=== PATIENT | male | born 1935 | race Caucasian/White ===

== ENCOUNTER 2018-06-23 13:12 | Emergency (ER) | payer MEDICARE, OTHER ==
[~2018-06-23] VITALS: Ht 172.7 cm; Wt 84.8 kg
--- NOTE | 2018-06-23 13:24 | ED Abdominal Pain ---
General Stated Complaint: RT SIDE PAIN Source of Information: Patient Exam Limitations: No Limitations History of Present Illness Date Seen by Provider: Jun 23, 2018 Time Seen by Provider: 13:22 Initial Comments To ER with sudden onset right lower quadrant abdominal pain about 3 hours ago. Hes had associated chills nausea and vomiting. No dysuria or bowel changes. This was sudden in onset just a few hours ago, felt fine earlier this morning. No history of this. No history of abdominal surgeries. He is actually from [place] drove to [place] last night and drove down here to [place] from [place] this morning. He is otherwise healthy only reporting a history of asthma and hypertension. Timing/Duration: 1-3 Hours Severity/Quality: Severe Location: RLQ Radiation: No Radiation Activities at Onset: None Allergies and Home Medications Allergies Coded Allergies: No Known Drug Allergies (Unverified , 06/23/18) Home Medications Hydrocodone/Acetaminophen 1 Each Tablet, 1 EACH PO Q4H PRN for PAIN-MODERATE TO SEVERE Prescribed by: KAIT ELLIS on 06/23/18 141 Ketorolac Tromethamine 10 Mg Tablet, 10 MG PO Q6H Prescribed by: KAIT ELLIS on 06/23/18 141 Sulfamethoxazole/Trimethoprim 1 Each Tablet, 1 EACH PO BID Prescribed by: KAIT ELLIS on 06/23/18 1417 Patient Home Medication List Home Medication List Reviewed: Yes Review of Systems Review of Systems Constitutional: see HPI EENTM: No Symptoms Reported Respiratory: No Symptoms Reported Cardiovascular: No Symptoms Reported Gastrointestinal: See HPI, Abdominal Pain; Denies Constipated, Denies Diarrhea ; Nausea, Vomiting Genitourinary: See HPI; Denies Flank Pain, Denies Hematuria Musculoskeletal: no symptoms reported Skin: no symptoms reported Psychiatric/Neurological: No Symptoms Reported Endocrine: No Symptoms Reported Hematologic/Lymphatic: No Symptoms Reported Past Wewnmuk-Dxckzm-Cxbqjr Hx Patient Social History Recent Foreign Travel: No Contact w/Someone Who Travel: No Physical Exam Vital Signs Vital Signs - First Documented 06/23/18 13:32 Temp 97.4 Pulse 64 Resp 16 B/P (MAP) 165/82 (109) Pulse Ox 98 Capillary Refill : Height/Weight/BMI Height: '" Weight: lbs. oz. kg; BMI Method: General Appearance: WD/WN, no apparent distress HEENT: PERRL/EOMI, normal ENT inspection Neck: non-tender, full range of motion Respiratory: normal breath sounds, no respiratory distress, no accessory muscle use Cardiovascular: regular rate, rhythm, no murmur Gastrointestinal: normal bowel sounds, soft, tenderness (right lower quadrant) Extremities: normal range of motion, non-tender Neurologic/Psychiatric: alert, normal mood/affect, oriented x 3 Skin: normal color, warm/dry Progress/Results/Core Measures Results/Orders Lab Results Laboratory Tests Test 06/23/18 13:26 Range/Units White Blood Count 15.1 H 4.3-11.0 10^3/uL Red Blood Count 4.06 L 4.35-5.85 10^6/uL Hemoglobin 13.3 13.3-17.7 G/DL Hematocrit 39 L 40-54 % Mean Corpuscular Volume 95 80-99 FL Mean Corpuscular Hemoglobin 33 25-34 PG Mean Corpuscular Hemoglobin Concent 34 32-36 G/DL Red Cell Distribution Width 13.3 10.0-14.5 % Platelet Count 257 130-400 10^3/uL Mean Platelet Volume 10.8 H 7.4-10.4 FL Neutrophils (%) (Auto) 87 H 42-75 % Lymphocytes (%) (Auto) 9 L 12-44 % Monocytes (%) (Auto) 3 0-12 % Eosinophils (%) (Auto) 1 0-10 % Basophils (%) (Auto) 0 0-10 % Neutrophils # (Auto) 13.1 H 1.8-7.8 X 10^3 Lymphocytes # (Auto) 1.4 1.0-4.0 X 10^3 Monocytes # (Auto) 0.5 0.0-1.0 X 10^3 Eosinophils # (Auto) 0.1 0.0-0.3 10^3/uL Basophils # (Auto) 0.0 0.0-0.1 10^3/uL Neutrophils % (Manual) 85 % Lymphocytes % (Manual) 7 % Monocytes % (Manual) 4 % Band Neutrophils 4 % Toxic Granulation 3+ Blood Morphology Comment NORMAL Urine Color YELLOW Urine Clarity VERY CLOUDY H Urine pH 5 5-9 Urine Specific [place] 1.025 H 1.016-1.022 Urine Protein 2+ H NEGATIVE Urine Glucose (UA) NEGATIVE NEGATIVE Urine Ketones NEGATIVE NEGATIVE Urine Nitrite NEGATIVE NEGATIVE Urine Bilirubin NEGATIVE NEGATIVE Urine Urobilinogen NORMAL NORMAL MG/DL Urine Leukocyte Esterase 3+ H NEGATIVE Urine RBC (Auto) 5+ H NEGATIVE Urine RBC 10-25 H /HPF Urine WBC TNTC H /HPF Urine Squamous Epithelial Cells NONE /HPF Urine Crystals NONE /LPF Urine Bacteria LARGE H /HPF Urine Casts NONE /LPF Urine Mucus SMALL H /LPF Urine Culture Indicated YES Sodium Level 143 135-145 MMOL/L Potassium Level 3.8 3.6-5.0 MMOL/L Chloride Level 110 H 98-107 MMOL/L Carbon Dioxide Level 19 L 21-32 MMOL/L Anion Gap 14 5-14 MMOL/L Blood Urea Nitrogen 18 7-18 MG/DL Creatinine 1.19 0.60-1.30 MG/DL Estimat Glomerular Filtration Rate 59 BUN/Creatinine Ratio 15 Glucose Level 151 H 70-105 MG/DL Calcium Level 9.5 8.5-10.1 MG/DL Corrected Calcium 9.3 8.5-10.1 MG/DL Total Bilirubin 0.5 0.1-1.0 MG/DL Aspartate Amino Transf (AST/SGOT) 18 5-34 U/L Alanine Aminotransferase (ALT/SGPT) 20 0-55 U/L Alkaline Phosphatase 58 40-136 U/L Total Protein 7.7 6.4-8.2 GM/DL Albumin 4.2 3.2-4.5 GM/DL My Orders Orders - KAIT ELLIS APRN Cbc With Automated Diff (06/23/18 13:16) Comprehensive Metabolic Panel (06/23/18 13:16) Ua Culture If Indicated (06/23/18 13:16) Iv Heplock-Insert (Order) (06/23/18 13:16) Ct Abd/Pelvis Wo(Kidney Stone) (06/23/18 13:21) Ketorolac Injection (Toradol Injection) (06/23/18 13:30) Ondansetron Injection (Zofran Injectio (06/23/18 13:30) Manual Differential (06/23/18 13:26) Urine Culture (06/23/18 13:26) Ceftriaxone For Iv Use (Rocephin For I (06/23/18 14:00) Abdomen/Kub 1view (06/23/18 14:00) Medications Given in ED Current Medications Medications Dose Ordered Sig/Facundo Route Start Time Stop Time Status Last Admin Dose Admin Ceftriaxone Sodium 1000 mg/ Sodium Chloride 50 ml @ 100 mls/hr ONCE ONCE IV 06/23/18 14:00 06/23/18 14:29 DC 06/23/18 14:08 100 MLS/HR Ketorolac Tromethamine 30 mg ONCE ONCE IVP 06/23/18 13:30 06/23/18 13:31 DC 06/23/18 13:31 30 MG Ondansetron HCl 4 mg ONCE ONCE IVP 06/23/18 13:30 06/23/18 13:31 DC 06/23/18 13:32 4 MG Vital Signs/I&O 06/23/18 13:32 Temp 97.4 Pulse 64 Resp 16 B/P (MAP) 165/82 (109) Pulse Ox 98 Diagnostic Imaging Diagonstic Imaging: CT Comments NAME: JAHAIRA SANDHU [facility] REC#: [id number] PT STATUS: REG ER : 1935 PHYSICIAN: KAIT ELLIS APRN ADMIT DATE: 06/23/18/ER Draft Date of Exam:06/23/18 CT ABD/PELVIS WO(KIDNEY STONE) PROCEDURE: CT urinary tract, rule out kidney stone. TECHNIQUE: Multiple contiguous axial images were obtained through the abdomen and pelvis without the use of intravenous contrast. INDICATION: Anterior lower abdominal pain. Comparison: None Findings: The lung bases demonstrate minimal atelectasis. The heart is normal in size. There is no pericardial effusion. There is a small hiatal hernia. No focal hepatic lesions are seen. There are multiple calcified stones in the gallbladder, measuring up to 1.6 cm in diameter. The pancreas is unremarkable. The spleen appears normal. The adrenal glands are normal. There is moderate right hydroureteronephrosis, with a obstructing 3 mm calculus at the distal right ureter, approximately 1.5 cm from the ureterovesicular junction. No additional renal calculi are seen. No left hydronephrosis is seen. The urinary bladder is decompressed. The prostate is mildly large. The small bowel loops are nondistended without evidence of obstruction. The appendix appears normal. There is diverticulosis of the sigmoid colon without diverticulitis seen. There is a large left inguinal hernia which contains a loop of the sigmoid colon. No evidence of obstruction is seen. No free fluid or free air is seen in the abdomen. No acute osseous abnormality is seen. There is a simple appearing lipoma measuring 7.8 x 3.9 cm along the posterolateral right chest wall. IMPRESSION: 1. Obstructing 3 mm calculus in the distal right ureter, with moderate right hydroureteronephrosis. 2. Cholelithiasis. 3. Small hiatal hernia. 4. Large left inguinal hernia containing a loop of sigmoid colon. No obstruction is seen. 5. Colonic diverticulosis without diverticulitis. 6. Simple appearing lipoma along the posterolateral right chest wall. Dictated on workstation # [id number] Dict: 06/23/18 1343 Trans: 06/23/18 1351 [facility] [id number] Interpreted by: DAYSI VILLARREAL MD Electronically signed by: NAME: JAHAIRA SANDHU [facility] REC#: [id number] PT STATUS: REG ER : 1935 PHYSICIAN: KAIT ELLIS [employer] ADMIT DATE: 06/23/18/ER Draft Date of Exam:06/23/18 ABDOMEN/KUB 1VIEW INDICATION: Right flank pain Supine views of the abdomen shows bowel gas pattern to be within normal limits. There is cholelithiasis. No renal or ureteral stones are evident. There is no mass. There is no acute bony abnormality. IMPRESSION: Cholelithiasis. No acute abnormality is seen. Dictated on workstation # [id number] Dict: 06/23/18 1427 Trans: 06/23/18 1429 [facility] [id number] Interpreted by: ENRRIQUE STEWART MD Electronically signed by: Departure Communication (Admissions) [id number]- I discussed the case with Dr. Mosqueda from urology. Patient's pain is well controlled, he was 9 out of 10 on arrival and is currently 3 out of 10. He has no nausea no fevers. We will give a gram of Rocephin IV, Dr. Mosqueda would recommend Bactrim DS, pain medication and he can see the patient on Monday morning at 1 PM if the patient is still here. However, I discussed with the patient and he will be returning to [facility] tomorrow or he is from, he is only here to watch his grandchild November in the band at [facility]. I discussed at length with the patient and his the diagnosis of the stone, urinary tract infection which could precipitate a need for admission for IV antibiotics. They agreed to either return here or go to whichever hospital they may be nearest to if he develops fevers or vomiting or intolerable pain. Also discussed with him the incidental finding of left inguinal hernia and gallstones. He is well-appearing, no vomiting and pain is much better controlled. He appears a reliable source and can safely be discharged home with return precautions. Impression Primary Impression: Urinary tract infection Additional Impression: Right ureteral calculus Disposition: HOME, SELF-CARE Condition: Improved Departure-Patient Inst. Decision time for Depature: 14:11 Referrals: NO,LOCAL PHYSICIAN (PCP) Primary Care Physician DERRICK MOSQUEDA MD Patient Instructions: Kidney Stones in Adults, Urinary Tract Infection, Adult ( DC) Add. Discharge Instructions: 1. Return to ER (either here or at whichever hospital you may be near to on your trip home) for intolerable pain, FEVERS, nausea/vomiting. Follow up with your family doctor on Monday. 2. Your antibiotics and one of your pain medications has been transmitted electronically to [facility] across the street. The hydrocodone (stronger pain medication) will need to be hand delivered by you to the pharmacy at the drive- through. Scripts Sulfamethoxazole/Trimethoprim (Bactrim Ds Tablet) 1 Each Tablet 1 EACH PO BID, #20 TAB Prov: KAIT ELLIS APRN 06/23/18 Hydrocodone/Acetaminophen (Froid 5-325 Tablet) 1 Each Tablet 1 EACH PO Q4H PRN for PAIN-MODERATE TO SEVERE, #20 TAB Prov: KAIT ELLIS APRN 06/23/18 Ketorolac Tromethamine (Ketorolac Tromethamine) 10 Mg Tablet 10 MG PO Q6H, #14 TAB Prov: KAIT ELLIS APRN 06/23/18 KAIT ELLIS APRN Jun 23, 2018 13:24
[2018-06-23] MEDS ORDERED: ONDANSETRON 4 MG/2 ML (SDV) Z0FRAN IVP ONE (13:30)
[2018-06-23] MEDS ORDERED: KETOROLAC 30 MG/ML VIAL IVP ONE (13:30)
[2018-06-23] MEDS ORDERED: FLUT16SP22 (13:39)
[2018-06-23] MEDS ORDERED: MONT10TA24 (13:39)
[2018-06-23] MEDS ORDERED: TERA10CA3 (13:39)
[2018-06-23] MEDS ORDERED: LISI2.5T (13:39)
[2018-06-23 13:43] LABS: BILIRUBIN,URINE NEGATIVE (NEGATIVE); CLARITY,URINE VERY CLOUDY; COLOR,URINE YELLOW; GLUCOSE, URINE (UA) NEGATIVE (NEGATIVE); KETONES,URINE NEGATIVE (NEGATIVE); LEUKOCYTE ESTERASE ,URINE 3+ (NEGATIVE); NITRITE,URINE NEGATIVE (NEGATIVE); PH,URINE 5 (5-9); PROTEIN,URINE 2+ (NEGATIVE); UROBILINOGEN,URINE NORMAL (NORMAL)
[2018-06-23 13:44] LABS: BASOPHILS % (AUTO) 0 % (0-10); EOSINOPHILS # (AUTO) 0.1 10^3/uL (0.0-0.3); EOSINOPHILS % (AUTO) 1 % (0-10); HEMATOCRIT 39 % (40-54); HEMOGLOBIN 13.3 G/DL (13.3-17.7); LYMPHOCYTES # (AUTO) 1.4 X 10^3 (1.0-4.0); LYMPHOCYTES % (AUTO) 9 % (12-44); MEAN CORPUSCULAR HEMOGLOBIN 33 PG (25-34); MEAN CORPUSCULAR HGB CONC 34 G/DL (32-36); MEAN CORPUSCULAR VOLUME 95 FL (80-99); MEAN PLATELET VOLUME 10.8 FL (7.4-10.4); MONOCYTES # (AUTO) 0.5 X 10^3 (0.0-1.0); MONOCYTES % (AUTO) 3 % (0-12); NEUTROPHILS # (AUTO) 13.1 X 10^3 (1.8-7.8); NEUTROPHILS % (AUTO) 87 % (42-75); PLATELET COUNT 257 10^3/uL (130-400); RED BLOOD COUNT 4.06 10^6/uL (4.35-5.85); RED CELL DISTRIBUTION WIDTH 13.3 % (10.0-14.5); WHITE BLOOD COUNT 15.1 10^3/uL (4.3-11.0)
--- NOTE | 2018-06-23 13:51 | Diagnostic Imaging Report ---
PROCEDURE: CT urinary tract, rule out kidney stone. TECHNIQUE: Multiple contiguous axial images were obtained through the abdomen and pelvis without the use of intravenous contrast. INDICATION: Anterior lower abdominal pain. Comparison: None Findings: The lung bases demonstrate minimal atelectasis. The heart is normal in size. There is no pericardial effusion. There is a small hiatal hernia. No focal hepatic lesions are seen. There are multiple calcified stones in the gallbladder, measuring up to 1.6 cm in diameter. The pancreas is unremarkable. The spleen appears normal. The adrenal glands are normal. There is moderate right hydroureteronephrosis, with a obstructing 3 mm calculus at the distal right ureter, approximately 1.5 cm from the ureterovesicular junction. No additional renal calculi are seen. No left hydronephrosis is seen. The urinary bladder is decompressed. The prostate is mildly large. The small bowel loops are nondistended without evidence of obstruction. The appendix appears normal. There is diverticulosis of the sigmoid colon without diverticulitis seen. There is a large left inguinal hernia which contains a loop of the sigmoid colon. No evidence of obstruction is seen. No free fluid or free air is seen in the abdomen. No acute osseous abnormality is seen. There is a simple appearing lipoma measuring 7.8 x 3.9 cm along the posterolateral right chest wall. IMPRESSION: 1. Obstructing 3 mm calculus in the distal right ureter, with moderate right hydroureteronephrosis. 2. Cholelithiasis. 3. Small hiatal hernia. 4. Large left inguinal hernia containing a loop of sigmoid colon. No obstruction is seen. 5. Colonic diverticulosis without diverticulitis. 6. Simple appearing lipoma along the posterolateral right chest wall. Dictated by: Dictated on workstation # [id number]
[2018-06-23 13:52] LABS: BACTERIA,URINE LARGE /HPF; WBC,URINE TNTC /HPF
[2018-06-23] MEDS ORDERED: cefTRIAXone FOR IV USE 1,000 MG in NS (IVPB) 50 ML IV ONE (14:00)
[2018-06-23 14:01] LABS: ALBUMIN 4.2 GM/DL (3.2-4.5); BILIRUBIN,TOTAL 0.5 MG/DL (0.1-1.0); CALCIUM 9.5 MG/DL (8.5-10.1); CREATININE SERUM 1.19 MG/DL (0.60-1.30); POTASSIUM 3.8 MMOL/L (3.6-5.0); TOTAL PROTEIN 7.7 GM/DL (6.4-8.2)
[2018-06-23 14:02] LABS: BAND NEUTROPHILS 4 %; LYMPHOCYTES % (MANUAL) 7 %; MONOCYTES % (MANUAL) 4 %; NEUTROPHILS % (MANUAL) 85 %; RBC MORPH NORMAL; TOXIC GRANULATION/VACUOLAZATIO 3+
[2018-06-23] MEDS ORDERED: HYDR-4226 PO (14:17)
[2018-06-23] MEDS ORDERED: KETO10TA PO (14:17)
[2018-06-23] MEDS ORDERED: SULF1TAB35 PO (14:17)
--- NOTE | 2018-06-23 14:29 | Diagnostic Imaging Report ---
INDICATION: Right flank pain Supine views of the abdomen shows bowel gas pattern to be within normal limits. There is cholelithiasis. No renal or ureteral stones are evident. There is no mass. There is no acute bony abnormality. IMPRESSION: Cholelithiasis. No acute abnormality is seen. Dictated by: Dictated on workstation # [id number]
[2018-06-23 14:52] VITALS: BP 139/83
== END 2018-06-23 14:52 | disposition home or self-care (01) ==
LOC: ER 13:15
DX: N13.6 Pyonephrosis (principal); J45.909 Unspecified asthma, uncomplicated; I10 Essential (primary) hypertension
CPT/HCPCS: 36415; 74018; 74176; 80053; 81000; 85007; 85027; 87077; 87088; 87186; 96365; 96375